=== PATIENT | male | born 1950 | race Caucasian/White ===

== ENCOUNTER 2017-08-10 09:32 | Inpatient (IN) | payer MEDICARE, OTHER, SELFPAY ==
[~2017-08-10] VITALS: Ht 175.3 cm; Wt 92.7 kg
[2017-08-10] MEDS ORDERED: SODIUM CHLORIDE 0.9% 1,000ML IVBOLUS ONE (10:00)
[2017-08-10] MEDS ORDERED: ACETAMINOPHEN 325 MG TABLET ONE (10:20)
[2017-08-10 10:29] LABS: HEMATOCRIT 38.9 % (39.2-51.8); HEMOGLOBIN 12.7 g/dL (13.7-18.0); WHITE BLOOD COUNT 7.3 x10^3/uL (3.4-10)
[2017-08-10] MEDS ORDERED: ACETAMINOPHEN 325 MG TABLET PO ONE (10:30)
[2017-08-10 10:43] LABS: BLOOD UREA NITROGEN 20 mg/dL (7-18)
[2017-08-10 10:49] LABS: ASPARTATE AMINO TRANSFERASE 45 U/L (15-37)
[2017-08-10 10:58] LABS: IS PT STATUS REG ER OR PRE ER? YES
[2017-08-10] MEDS ORDERED: DIVA125C3 PO (11:13)
[2017-08-10] MEDS ORDERED: FOLI-17 PO (11:14)
[2017-08-10] MEDS ORDERED: DOCU100C33 PO (11:14)
[2017-08-10] MEDS ORDERED: GABA-826 PO (11:15)
[2017-08-10] MEDS ORDERED: GLIP10TA13 PO (11:16)
[2017-08-10] MEDS ORDERED: ESCI10TA10 PO (11:16)
[2017-08-10] MEDS ORDERED: ACET325T26 PO (11:17)
[2017-08-10] MEDS ORDERED: MAGN400O7 PO (11:18)
[2017-08-10] MEDS ORDERED: PANT40TA5 PO (11:18)
[2017-08-10] MEDS ORDERED: THIA100T27 PO (11:19)
[2017-08-10] MEDS ORDERED: RISP1TAB3 PO (11:19)
[2017-08-10 12:00] LABS: PATH.CAST-FLAG NOT PRESENT; SPERM-FLAG NOT PRESENT; SRC-FLAG NOT PRESENT; XTAL-FLAG NOT PRESENT; YLC-FLAG NOT PRESENT
[2017-08-10] MEDS ORDERED: CEFTRIAXONE PMX 1GM/50ML 50 ML IV ONE (12:00)
[2017-08-10] MEDS ORDERED: CEFTRIAXONE PMX 1GM/50ML 50 ML ONE (12:01)
[2017-08-10] MEDS ORDERED: ONDANSETRON 2MG/ML, 2ML IVPush PRN (15:00)
[2017-08-10] MEDS ORDERED: ACETAMINOPHEN 325 MG TABLET PO PRN (15:00)
[2017-08-10] MEDS ORDERED: LABETALOL 5MG/ML, 20ML IVPush PRN (15:00)
[2017-08-10] MEDS ORDERED: DOCUSATE 100 MG CAPSULE PO PRN ×2 (15:00)
[2017-08-10] MEDS ORDERED: ONDANSETRON ODT 4 MG PO PRN (15:00)
[2017-08-10] MEDS ORDERED: ENALAPRILAT 1.25 MG/ML, 2ML IVPush PRN (15:00)
[2017-08-10 16:21] LABS: GLUCOSE, CSF 75 mg/dL (40-80)
[2017-08-10 16:35] VITALS: BP 123/80
[2017-08-10] MEDS: HEPARIN 5,000 UNITS/ML, 1ML SQ SCH ×2 (16:58→22:58)
[2017-08-10] MEDS: SODIUM CHLORIDE 0.9% 1,000 ML IV SCH (16:58)
[2017-08-10] MEDS ORDERED: POTA10TA11 PO (17:38)
[2017-08-10 18:25] VITALS: BP 106/60
[2017-08-10] MEDS: DIVALPROEX 125 MG CAP.SPRINK PO SCH (20:03)
[2017-08-11 01:31] VITALS: BP 153/82
[2017-08-11] MEDS: SODIUM CHLORIDE 0.9% 1,000 ML IV SCH ×3 (01:31→20:26)
[2017-08-11 05:15] LABS: HEMATOCRIT 37.3 % (39.2-51.8); HEMOGLOBIN 12.5 g/dL (13.7-18.0); WHITE BLOOD COUNT 5.4 x10^3/uL (3.4-10)
[2017-08-11 07:04] VITALS: BP 91/70
[2017-08-11 07:08] LABS: ASPARTATE AMINO TRANSFERASE 55 U/L (15-37); BLOOD UREA NITROGEN 12 mg/dL (7-18)
[2017-08-11] MEDS: TEMPLATE NON-FORMULARY MED. (Escitalopram Oxalate** (Lexapro**) 5 MG) PO SCH (08:08)
[2017-08-11] MEDS: SENNA/DOCUSATE TABLET PO SCH (09:00)
[2017-08-11] MEDS: THIAMINE MONONITRATE 100 MG PO SCH (09:00)
[2017-08-11] MEDS: FOLIC ACID 1 MG TABLET PO SCH (09:13)
[2017-08-11] MEDS: PANTOPROZOLE 40MG TABLET PO SCH (09:13)
[2017-08-11] MEDS: HEPARIN 5,000 UNITS/ML, 1ML SQ SCH ×2 (09:13→15:42)
[2017-08-11] MEDS ORDERED: MAGNESIUM SULFATE PMX 2GM/50ML 50 ML IV ONE (11:30)
[2017-08-11] MEDS: CEFTRIAXONE PMX 1GM/50ML 50 ML IV SCH (11:52)
[2017-08-11] MEDS ORDERED: ALBUTEROL SULFATE 2.5 MG/3 ML ONE (11:58)
[2017-08-11] MEDS: ALBUTEROL SULFATE 2.5 MG/3 ML NPPB PRN (12:06)
[2017-08-11 13:22] VITALS: BP 96/67
[2017-08-11 13:35] VITALS: BP 92/68
[2017-08-11] MEDS ORDERED: SODIUM CHLORIDE 0.9% 1,000 ML IV SCH (14:00)
[2017-08-11 18:59] VITALS: BP 100/60
[2017-08-11] MEDS: DIVALPROEX 125 MG CAP.SPRINK PO SCH (20:26)
[2017-08-12] MEDS: HEPARIN 5,000 UNITS/ML, 1ML SQ SCH ×3 (00:34→17:18)
[2017-08-12 02:00] VITALS: BP 106/74
[2017-08-12] MEDS: SODIUM CHLORIDE 0.9% 1,000 ML IV SCH ×3 (04:30→20:02)
[2017-08-12 04:55] LABS: HEMATOCRIT 36.1 % (39.2-51.8); HEMOGLOBIN 12.1 g/dL (13.7-18.0); WHITE BLOOD COUNT 3.7 x10^3/uL (3.4-10)
[2017-08-12 05:02] LABS: BLOOD UREA NITROGEN 14 mg/dL (7-18)
[2017-08-12 05:06] LABS: ASPARTATE AMINO TRANSFERASE 54 U/L (15-37)
[2017-08-12] MEDS: TEMPLATE NON-FORMULARY MED. (Escitalopram Oxalate** (Lexapro**) 5 MG) PO SCH (07:57)
[2017-08-12] MEDS: THIAMINE MONONITRATE 100 MG PO SCH (07:57)
[2017-08-12] MEDS: SENNA/DOCUSATE TABLET PO SCH (08:19)
[2017-08-12 08:28] VITALS: BP 161/77
[2017-08-12] MEDS: FOLIC ACID 1 MG TABLET PO SCH (08:29)
[2017-08-12] MEDS: PANTOPROZOLE 40MG TABLET PO SCH (08:29)
[2017-08-12] MEDS: ALBUTEROL SULFATE 2.5 MG/3 ML NPPB PRN (09:10)
[2017-08-12 11:24] VITALS: BP 128/78
[2017-08-12] MEDS ORDERED: ALBU8.5H8 INH (11:46)
[2017-08-12] MEDS: CEFTRIAXONE PMX 1GM/50ML 50 ML IV SCH (12:00)
[2017-08-12 12:08] VITALS: BP_SYST 134; BP_SYST 157; BP_SYST 163; BP_DIAS 100; BP_DIAS 83; BP_DIAS 88
[2017-08-12 13:51] VITALS: BP 100/66
[2017-08-12 19:43] VITALS: BP 90/61
[2017-08-12] MEDS: DIVALPROEX 125 MG CAP.SPRINK PO SCH (20:02)
[2017-08-13] MEDS: HEPARIN 5,000 UNITS/ML, 1ML SQ SCH ×2 (00:42→08:30)
[2017-08-13 01:43] VITALS: BP 97/66
[2017-08-13] MEDS: SODIUM CHLORIDE 0.9% 1,000 ML IV SCH (04:04)
[2017-08-13] MEDS: PANTOPROZOLE 40MG TABLET PO SCH (08:31)
[2017-08-13] MEDS: SENNA/DOCUSATE TABLET PO SCH (08:31)
[2017-08-13] MEDS: FOLIC ACID 1 MG TABLET PO SCH (08:32)
[2017-08-13] MEDS: THIAMINE MONONITRATE 100 MG PO SCH (09:00)
[2017-08-13] MEDS: TEMPLATE NON-FORMULARY MED. (Escitalopram Oxalate** (Lexapro**) 5 MG) PO SCH (09:00)
[2017-08-13 09:37] VITALS: BP 106/75
== END 2017-08-13 10:55 | DRG 871 ==
LOC: ED 09:48 → EDIP 14:02 → 4WST 16:08
PROVIDERS: ADMIT Hospitalist; ATTEND Hospitalist
PROC: 009U3ZX Drainage of Spinal Canal, Percutaneous Approach, Diagnostic (ICD-10-PCS; principal; 2017-08-10)
PROC: B01B1ZZ Fluoroscopy of Spinal Cord using Low Osmolar Contrast (ICD-10-PCS; 2017-08-10)
DX: A41.9 Sepsis, unspecified organism (principal); N17.0 Acute kidney failure with tubular necrosis; R65.21 Severe sepsis with septic shock; I48.91 Unspecified atrial fibrillation; F03.90 Unspecified dementia, unspecified severity, without behavioral disturbance, psychotic disturbance, mood disturbance, and anxiety; K21.9 Gastro-esophageal reflux disease without esophagitis; I25.10 Atherosclerotic heart disease of native coronary artery without angina pectoris; E11.9 Type 2 diabetes mellitus without complications; R32 Unspecified urinary incontinence; Z75.1 Person awaiting admission to adequate facility elsewhere
CPT/HCPCS: 36415; 62270; 70450; 71010; 80053; 81001; 82140; 82945; 83605; 83735; 84100; 84145; 84157; 84439; 84443; 84484; 85025; 87040; 87070; 87205; 87252; 89051; 93005; 94640; 96361; 96365; J0696; J1644; J7613; J3475; J7030